=== PATIENT | female | born 1970 | race Caucasian/White ===

== ENCOUNTER 2016-12-12 23:40 | Inpatient (IN) | payer MEDICARE, OTHER ==
[~2016-12-12] VITALS: Ht 160 cm; Wt 64.9 kg
[~2016-12-12 23:40] MED LIST: ALPRAZOLAM0.5 MG PO; BENTYL 10MG CAP10 MG PO; CELEXA20 MG PO; CREON DR 24,001 EACH PO; LEVEMIR100 UNIT/1 SQ; MAXALT MLT10 MG PO; MIDRIN PO; NEURONTIN600 MG PO; NOVOLOG100 UNIT/1 SC; OXYCONTIN10 MG PO; PHOSLO667 MG PO; PROTONIX40 MG PO; RENO CAPS SOFTGE1 MG PO; REQUIP1 MG PO; ROXICODONE5 MG PO; SYNTHROID25 MCG PO; XIFAXAN 550 MG550 MG PO
[2016-12-13 02:48] LABS: HEMOGLOBIN 10.2 gm/dl (12.3-15.3); RED BLOOD COUNT 3.03 M/UL (4.00-5.10); WHITE BLOOD COUNT 18.2 K/UL (4.5-11.0)
[2016-12-13 08:32] LABS: ASTROVIRUS Not Detected (Negative); CAMPYLOBACTER Not Detected (Negative); CLOSTRIDIUM DIFFICILE TOX A/B Not Detected (Negative); CRYPTOSPORIDIUM Not Detected (Negative); E.COLI 0157 Not Detected (Negative); ENTAMOEBA HISTOLYTICA Not Detected (Negative); ENTEROAGGREGATIVE E.COLI (EAEC Not Detected (Negative); ENTEROPATHOGENIC E.COLI (EPEC) Not Detected (Negative); ENTEROTOXIGENIC E.COLI (ETEC) Not Detected (Negative); GIARDIA LAMBLIA Not Detected (Negative); NOROVIRUS GI/GII Not Detected (Negative); PLESIOMONAS SHIGELLOIDES Not Detected (Negative); ROTOVIRUS A Not Detected (Negative); SALMONELLA Not Detected (Negative); SAPOVIRUS Not Detected (Negative); SHIG/ENTEROINVAS.ECOLI (EIEC) Not Detected (Negative); SHIGA-LIK TOX.PRO.E.COLI (STEC Not Detected (Negative); VIBRIO Not Detected (Negative); VIBRIO CHOLERAE Not Detected (Negative); YERSINIA ENTEROCOLITICA Not Detected (Negative)
[2016-12-13 12:02] LABS: ADENOVIRUS F 40/41 DETECTED (Negative)
[2016-12-14 05:13] LABS: HEMOGLOBIN 8.1 gm/dl (12.3-15.3); RED BLOOD COUNT 2.38 M/UL (4.00-5.10); WHITE BLOOD COUNT 8.8 K/UL (4.5-11.0)
[2016-12-14 09:32] LABS: HEMOGLOBIN 8.4 gm/dl (12.3-15.3); RED BLOOD COUNT 2.5 M/UL (4.00-5.10); WHITE BLOOD COUNT 8.1 K/UL (4.5-11.0)
[2016-12-15 04:53] LABS: HEMOGLOBIN 7.7 gm/dl (12.3-15.3); RED BLOOD COUNT 2.34 M/UL (4.00-5.10); WHITE BLOOD COUNT 6.3 K/UL (4.5-11.0)
[2016-12-16 05:02] LABS: HEMOGLOBIN 7.7 gm/dl (12.3-15.3); RED BLOOD COUNT 2.27 M/UL (4.00-5.10); WHITE BLOOD COUNT 6.4 K/UL (4.5-11.0)
[2016-12-18 06:23] LABS: HEMOGLOBIN 7.6 gm/dl (12.3-15.3); RED BLOOD COUNT 2.27 M/UL (4.00-5.10); WHITE BLOOD COUNT 5.9 K/UL (4.5-11.0)
[2016-12-19 04:54] LABS: HEMOGLOBIN 8.1 gm/dl (12.3-15.3); RED BLOOD COUNT 2.41 M/UL (4.00-5.10); WHITE BLOOD COUNT 6.3 K/UL (4.5-11.0)
[2016-12-20 05:48] LABS: RED BLOOD COUNT 2.35 M/UL (4.00-5.10); WHITE BLOOD COUNT 5.4 K/UL (4.5-11.0)
[2017-02-11] MEDS ORDERED: MOVANTIK25 MG PO (22:51)
[2017-02-20] MEDS ORDERED: LOPERAMIDE2 MG PO (14:59)
[2017-02-20] MEDS ORDERED: PHENERGAN 25 MG25 M1 PO (15:02)
[2017-03-20] MEDS ORDERED: LANTUS100 UNIT/1 SQ (10:26)
[2017-03-26] MEDS ORDERED: FLAGYL500 MG PO (12:22)
[2017-03-26] MEDS ORDERED: CIPRO500 MG PO (12:23)
[2017-03-26] MEDS ORDERED: PROCRIT10000 UNIT INJ (12:30)
== END 2016-12-21 14:45 | disposition home or self-care (01) | DRG 438 ==
LOC: ER1 23:40 → M/S 12-13 06:42 → ZEROF 12-13 06:42 → M/S 12-13 13:34
PROVIDERS: Internal Medicine Infectious Disease; Internal Medicine Nephrology; Student in an Organized Health Care Education/Training Program; ADMIT Internal Medicine
DX: K85.90 Acute pancreatitis without necrosis or infection, unspecified (principal); N18.6 End stage renal disease; A08.2 Adenoviral enteritis; R18.8 Other ascites; K86.1 Other chronic pancreatitis; E11.9 Type 2 diabetes mellitus without complications; E03.9 Hypothyroidism, unspecified; F41.9 Anxiety disorder, unspecified; K74.60 Unspecified cirrhosis of liver; D64.9 Anemia, unspecified; E87.6 Hypokalemia; G89.4 Chronic pain syndrome; Z99.2 Dependence on renal dialysis; Z88.3 Allergy status to other anti-infective agents; Z88.0 Allergy status to penicillin; Z88.8 Allergy status to other drugs, medicaments and biological substances; Z87.442 Personal history of urinary calculi; Z79.891 Long term (current) use of opiate analgesic; Z79.4 Long term (current) use of insulin; Z82.3 Family history of stroke; Z80.1 Family history of malignant neoplasm of trachea, bronchus and lung
CPT/HCPCS: 36415; 80048; 80053; 82150; 82962; 83605; 83690; 83735; 84100; 84703; 85025; 85027; 87507; 89055; 90937; 96361; 96374; 96375; 99285; C9113; J0885; J1650; J2270; J2550; J3480; J7030; J7050; Q4081